=== PATIENT | male | born 1975 | race Caucasian/White ===

== ENCOUNTER 2020-01-02 17:18 | Emergency (ER) | payer MEDICAID ==
[~2020-01-02] VITALS: Ht 170.2 cm; Wt 85.7 kg
[2020-01-02 17:29] VITALS: BP 159/94; Ht 170.2 cm; Wt 85.7 kg
== END 2020-01-02 18:40 | disposition home or self-care (01) ==
LOC: ED 17:18
DX: R68.2 Dry mouth, unspecified (principal); R43.8 Other disturbances of smell and taste